=== PATIENT | male | born 1970 | race Caucasian/White ===

== ENCOUNTER 2017-06-27 07:03 | Day surgery (SDC) | payer BC ==
[2017-06-27 07:21] VITALS: BMI 25.1
[2017-06-27] MEDS ORDERED: BUPIVACAINE HCL/PF 2.5 MG/ML - 30 ML VIAL IJ ONE (07:44)
[2017-06-27] MEDS ORDERED: ONDANSETRON 4 MG/2 ML VIAL IVPUSH PRN (08:17)
[2017-06-27] MEDS ORDERED: oxyCODONE HCL 5 MG TABLET PO PRN (08:17)
[2017-06-27] MEDS ORDERED: LACTATED RINGERS SOLUTION 1,000 ML IV SCH (08:30)
[2017-06-27] MEDS ORDERED: MIDAZOLAM HCL 2 MG/2 ML SINGLE DOSE VIAL ONE (08:40)
[2017-06-27] MEDS ORDERED: DEXAMETHASONE SOD PHOSPHATE 4 MG/1 ML VIAL ONE ×2 (09:09)
[2017-06-27] MEDS ORDERED: SUCCINYLCHOLINE CHLORIDE 200 MG/10 ML VIAL ONE (09:09)
[2017-06-27] MEDS ORDERED: KETOROLAC TROMETHAMINE 30 MG/1 ML VIAL ONE (09:09)
[2017-06-27] MEDS ORDERED: ONDANSETRON 4 MG/2 ML VIAL ONE (09:09)
[2017-06-27] MEDS ORDERED: PROPOFOL 20 ML ONE (09:09)
[2017-06-27] MEDS ORDERED: ceFAZolin SODIUM 1 GM VIAL ONE (09:09)
[2017-06-27] MEDS ORDERED: LIDOCAINE HCL/PF 2% SDV 5ML VIAL ONE (09:10)
[2017-06-27] MEDS ORDERED: LIDOCAINE HCL 2% JELLY (5 ML/TUBE) ONE (09:11)
--- NOTE | 2017-06-27 10:05 | OP ---
DATE OF OPERATION: 06/27/2017 PREOPERATIVE DIAGNOSIS: Right knee medial and lateral meniscal tears. POSTOPERATIVE DIAGNOSIS: Right knee medial and lateral meniscal tears, plus chondromalacia. SURGEON: Chadwick Stubbs MD [employer]: None. ANESTHESIA: General. CONDITION: Postoperative condition stable. COMPLICATIONS: None. TOURNIQUET TIME: 29 minutes. INDICATIONS: This is a pleasant 46-year-old gentleman who is suffering from knee pain and swelling. MRI demonstrated medial and lateral meniscal tears. Treatment options, including nonoperative versus operative management, were discussed. Operative risks were reviewed in detail, including bleeding, infection, neurovascular injury, need for further surgery, postoperative pain and stiffness, osteoarthritis. We discussed medical risks, such as heart attack, stroke, DVT, PE and . I addressed all the patient's questions. He voiced understanding and elected to proceed. DESCRIPTION OF PROCEDURE: The patient was brought to the operating room, where general anesthesia was administered. The right lower extremity was then prepped and draped in the usual sterile fashion. A preoperative dose of antibiotics was given, and the usual time-out procedure was performed. At this point, the arthroscopic portals were marked out. They were injected subcutaneously with 0.25% Marcaine. An 11 blade was now used to establish a lateral portal. The arthroscope was passed into the knee. Examination of the patellofemoral joint demonstrated grade 3 chondromalacia of the patella. There was streak wear on the trochlea. Passing the arthroscope down to the notch demonstrated intact ACL and PCL. Passing the arthroscope medially, a medial portal was established under spinal needle localization. Here, a complex tear was noted in the posterior horn of the medial meniscus, extending into the body. Utilizing the combination of meniscal biters and a shaver, this was debrided down to a stable base. The arthroscope was now passed into the lateral compartment. Here, grade 3 and borderline grade 4 cartilage loss was noted on the medial portion of the lateral tibial plateau. The lateral meniscus had what appeared to be a severed bucket-handle tear in the posterior portion, with the more posterior area adjacent to the root being severed. Again, utilizing the combination of meniscal biters and a shaver, this was debrided down to a stable base. At this point the excess fluid was withdrawn from the joint. The portals were sutured using 3-0 nylon. The tourniquet was let down after 29 minutes. The patient was extubated and transferred to the recovery room in stable condition. Shakeel PHILLIPS/[id number]
[2017-06-27] MEDS ORDERED: oxyCODONE HCL 5 MG TABLET ONE ×2 (10:27→11:09)
[2017-06-27 13:36] VITALS: TEMP 98.9
[2017-06-27 13:42] VITALS: BP 140/80; PULSE 88
== END 2017-06-27 11:40 | disposition home or self-care (01) ==
LOC: FASU 07:03
PROVIDERS: ATTEND Orthopaedic Surgery Sports Medicine
PROC: 0SBC4ZZ Excision of Right Knee Joint, Percutaneous Endoscopic Approach (ICD-10-PCS; 2017-06-27)
PROC: 0SBC4ZZ Excision of Right Knee Joint, Percutaneous Endoscopic Approach (ICD-10-PCS; principal; 2017-06-27 09:01)
DX: S83.241A Other tear of medial meniscus, current injury, right knee, initial encounter (principal); S83.281A Other tear of lateral meniscus, current injury, right knee, initial encounter; M22.41 Chondromalacia patellae, right knee; X58.XXXA Exposure to other specified factors, initial encounter; Y93.9 Activity, unspecified; Y92.9 Unspecified place or not applicable